=== PATIENT | male | born 1980 | race Caucasian/White ===

== ENCOUNTER 2019-11-29 15:02 | Emergency (ER) | payer BC, SELFPAY ==
[2019-11-29 15:03] VITALS: BP 121/78; PULSE 72; RESP 12; TEMP 36.8; O2SAT 100; BMI 19.6
--- NOTE | 2019-11-29 15:16 | [facility].EDGENADL ---
ED Disposition Clinical Impression: Bloody diarrhea Disposition: Home, Self-Care Condition on Discharge: Good Instructions: DI for Diarrhea and Traveler's Diarrhea -- Adult Additional Instructions: Outpatient diarrhea panel. Follow-up results with primary care provider. Additional instructions for ABDOMINAL PAIN: See your physician as soon as possible for further evaluation. Return immediately if worsening abdominal pain, vomiting, shortness of breath, fever, vomiting of blood or abdominal distention. Referrals: Maldonado Pelayo MD [Primary Care Provider] - - Critical Care Critical Care Time: No Attestation: On 11/29/19, the high probability of a clinically significant, sudden or life threatening deterioration of the following system(s) required my full and direct attention, intervention and personal management. The time I documented below is in addition to time spent performing reported procedures but includes the following listed in this critical care notation. Medical Decision Making - Medical Records Medical records reviewed: Yes: I reviewed the patient's medical records. - Brigido Inquiry Pt receiving controlled substance: No Vital Signs: 11/29/19 15:03 11/29/19 17:17 Temperature 98.2 F Temperature Source Oral Pulse Rate [Right] 72 84 Respiratory Rate 12 16 Blood Pressure [Right Arm] 121/78 111/67 Blood Pressure Mean [Right Arm] 92 81 Blood Pressure Source [Right Arm] Automatic Cuff Blood Pressure Position [Right Arm] Sitting 02 Sat by Pulse Oximetry 100 100 Oxygen Delivery Method Room Air Room Air - Lab Data Lab results reviewed: Yes: I reviewed the patient's lab results. Lab Results 11/29/19 15:20: Urine Color Yellow, Urine Appearance Clear, Urine pH 6.0, Ur Specific [place] >= 1.030, Urine Protein Negative, Urine Glucose (UA) Negative, Urine Ketones Negative, Urine Blood Trace-i, Urine Nitrate Negative, Urine Bilirubin Negative, Urine Urobilinogen 0.2, Ur Leukocyte Esterase Negative, Urine RBC Occasional, Urine WBC Occasional, Ur Squamous Epith Cells Occasional, Amorphous Sediment 1+, Urine Bacteria None, Urine Mucus 1+ 11/29/19 15:20: WBC 5.8, RBC 5.09, Hgb 15.5, Hct 43.5, MCV 85.5, MCH 30.3, MCHC 35.5 H, RDW 12.7, Plt Count 208, MPV 7.6, Neut % (Auto) 64.9, Lymph % (Auto) 22.6, [place] % (Auto) 5.0, Eos % (Auto) 7.0, Baso % (Auto) 0.6, Neut # (Auto) 3.8, Lymph # (Auto) 1.3, [place] # (Auto) 0.3, Eos # (Auto) 0.4, Baso # (Auto) 0.0 11/29/19 15:20: Sodium 140, Potassium 3.7, Chloride 97 L, Carbon Dioxide 32 H, Anion Gap 14.7, BUN 15, Creatinine 0.90, Estimated Creat Clear 103, Estimated GFR 94, Est GFR ( Amer) 114, Glucose 84, Calcium 10.0, Total Bilirubin 0.8, AST 48, ALT 40, Alkaline Phosphatase 54, Total Protein 8.4 H, Albumin 5.2 H, Globulin 3.2, Albumin/Globulin Ratio 1.6, Amylase 88 11/29/19 15:20: Lipase 102 Result diagrams: 11/29/19 15:20 11/29/19 15:20 Orders (Tests/Meds): ED MEDICATIONS Discontinued Medications Generic Name Dose Route Start Last Admin Trade Name Shashankq PRN Reason Stop Dose Admin Ioversol 75 ml 11/29/19 16:09 11/29/19 16:11 Rad-Optiray 350 100ml Vial IV 11/29/19 16:10 75 ml ONCE ONE Administration Protocol Sodium Chloride 10 ml 11/29/19 16:09 11/29/19 16:11 Rad-Saline Flush 10ml Syringe IV 11/29/19 16:10 10 ml ONCE ONE Administration ORDERS Category Date Time Status CT abdomen pelvis w con Stat Cat Scan 11/29/19 15:28 Taken Diarrhea 6-11 Panel, Cdiff PCR Stat Lab 11/29/19 15:32 Ordered Occult Blood,Stool Stat Lab 11/29/19 15:28 Ordered - CT Data CT Scan: Abdomen, Pelvis Time Received: 17:00 ([facility] fax) ED CT Reviewed: Yes: I have viewed the radiologist's interpretation Findings Narrative: No acute findings Medical Decision Narrative: No diarrhea in the emergency department. Has not provided diarrhea panel sample. The patient is nontoxic with unremarkable labs and CT. I have advised him that I wou
--- NOTE | 2019-11-29 15:28 | CT_ITS ---
Procedure: CT ABDOMEN PELVIS W CON Referring Doctor: Vineet Pino Patient Age:39Y CLINICAL INDICATION: BLOODY STOOL Abd cramping 2 days when trying have bowel movement COMPARISON: No exams were available for comparison TECHNIQUE: IV contrast: 75 cc Optiray 350 IV contrast utilized; but no oral/enteric contrast Helical axial images obtained with sagittal and coronal reformats. All CT scans at the facility use one or more dose reduction, viz: automated exposure control, ma/kV adjustment per patient size (including targeted exams where dose is matched to indication, i.e. head), or iterative reconstruction technique. FINDINGS: Lower thorax: No acute finding ABDOMEN/pelvis Liver spleen pancreas kidneys ureters unremarkable. Adrenals appear normal. Gallbladder contracted small size no gallstones. No biliary ductal dilatation. -GI tract- Stomach moderate distended with fluid and food mildly distending stomach. Duodenal loop and small bowel unremarkable no dilatation. Terminal ileum satisfactory Appendix-no good evidence of appendicitis Large bowel: Upper normal wall thickness throughout rectum and to lesser degree descending colon-may be reflection of lack of distension although may warrant further evaluation if there blood in stool Moderate solid stool right colon PELVIS: Reproductive: A normal prostate. Bladder: Small nondistended. No obvious stones or masses. Appendix: Unremarkable. No distention or periappendiceal phlegmonous change. Peritoneum: No abnormal fluid collections. No obvious inflammatory changes. No free air. But no hernia Lymph nodes: No enlarged lymph nodes apparent. Vasculature: No evidence of abdominal aortic aneurysm. No retroperitoneal hemorrhage evident. Bones: No acute fracture. No lesions. IMPRESSION: No acute findings abdomen or pelvis Generous wall thickening appearance throughout rectum and lesser throughout descending colon, more likely reflects lack distension, but if blood in stool present/or persist unexplained then endoscopywarranted Evaluation Dictated by: Jeffry Muniz MD 11/29/2019 20:02 Jeffry Muniz MD in [facility] 11/29/2019 20:02
[2019-11-29 15:34] LABS: Microscopic, Urine URINE MICROSCOPIC (MICROSCOPIC)
[2019-11-29 15:37] LABS: Appearance,Urine CLEAR (Clear); Basophils % 0.6 % (0.1-2.0); Bilirubin,Urine Negative (Negative); Blood, Urine TRACE-I (Negative); Color,Urine YELLOW (Yellow); Eosinophils # 0.4 K/mm3 (0.0-0.4); Glucose,Urine (UA) Negative (Negative); Hematocrit 43.5 % (42.0-52.0); Hemoglobin 15.5 g/dL (14.1-18.0); Ketones,Urine Negative (Negative); Leukocyte Esterase,Urine Negative (Negative); Lymphocytes # 1.3 K/mm3 (0.7-4.5); Lymphocytes % 22.6 % (10-50); Mean Corpuscular HGB Conc 35.5 g/dL (31.8-35.4); Mean Corpuscular Hemoglobin 30.3 pg (27.0-31.2); Mean Corpuscular Volume 85.5 fl (80-94); Mean Platelet Volume 7.6 fl (7.4-10.4); Monocytes # 0.3 K/mm3 (0.1-1.0); Neutrophils # 3.8 K/mm3 (1.8-7.8); Neutrophils % 64.9 % (37.0-80.0); Nitrate,Urine Negative (Negative); Platelet Count 208 K/mm3 (142-424); Protein,Urine Negative (Negative); Red Blood Count 5.09 M/mm3 (4.60-6.20); Red Cell Distribution Width 12.7 % (11.5-17.5); Specific Gravity, Urine >= 1.030 (1.005-1.030); Urobilinogen,Urine 0.2 EU/dl (0.2); White Blood Count 5.8 K/mm3 (4.8-10.8)
[2019-11-29 15:42] LABS: Alanine Aminotransferase 40 U/L (12-78); Albumin Level 5.2 g/dl (3.5-5.0); Albumin/Globulin Ratio 1.6 (1.1-1.8); Alkaline Phosphatase 54 U/L (38-126); Amylase 88 U/L (30-110); Anion Gap 14.7 mEq/L (5-15); Aspartate Amino Transferase 48 U/L (17-59); Bilirubin,Total 0.8 mg/dl (0.2-1.3); Blood Urea Nitrogen 15 mg/dl (9-20); Carbon Dioxide 32 mmol/L (22.0-30.0); Chloride 97 mmol/L (98-107); Creatinine Clearance Estimated 103 mL/min (50-200); Estimated Glomerular Filt Rate 94 ml/min (>60); GFR (African American) 114 ML/MIN (>60); Globulin 3.2 g/dL (1.3-3.2); Glucose 84 mg/dl (74-100); Potassium 3.7 mmoL/L (3.5-5.1); Sodium 140 mmol/L (136-145); Total Protein,Serum 8.4 g/dl (6.3-8.2)
[2019-11-29 15:43] LABS: Amorphous Sediment,Urine 1+ /lpf; Lipase 102 U/L (23-300); Mucus,Urine 1+ /lpf; RBC,Urine Occasional #/hpf (0-3); Squamous Epithelial Cell,Urine Occasional #/hpf (0-5); WBC,Urine Occasional #/hpf (0-3)
--- NOTE | 2019-11-29 15:52 | PC.NURSE ---
pt going to CT
[2019-11-29 17:17] VITALS: BP 111/67; PULSE 84; RESP 16; O2SAT 100
[2019-11-29 17:42] VITALS: BP 116/80; PULSE 70; RESP 16; TEMP 36.9; O2SAT 98
== END 2019-11-29 17:43 | disposition home or self-care (01) ==
PROVIDERS: Emergency Provider Emergency Medicine; PCP Family Medicine
DX: R19.7 Diarrhea, unspecified (principal)
CPT/HCPCS: 74177; 80053; 81001; 82150; 83690; 85025; 99283; Q9967

== ENCOUNTER → 2019-11-30 07:28 | Outpatient (CLI) | payer BC, SELFPAY ==
[2019-11-30 07:35] LABS: Adenovirus F 40/41, stool Not Detected (NotDetected); Astrovirus Not Detected (NotDetected); Campylobacter Not Detected (NotDetected); Clostridium Difficile A/B, PCR Not Detected (NotDetected); Cryptosporidium Not Detected (NotDetected); Cyclospora Cayetanesis Not Detected (NotDetected); Entamoeba histolytica Not Detected (NotDetected); Enteroaggregative E coli Not Detected (NotDetected); Enteropathogenic E coli Not Detected (NotDetected); Enterotoxigenic E coli Not Detected (NotDetected); Giardia lamblia Not Detected (NotDetected); Norovirus Not Detected (NotDetected); Plesimonas Shigalloides, PCR Not Detected (NotDetected); Rotavirus A Not Detected (NotDetected); Salmonella, PCR Not Detected (NotDetected); Sapovirus Not Detected (NotDetected); Shiga-like toxin E coli Not Detected (NotDetected); Shigella Enterovasive E coli Not Detected (NotDetected); Vibrio Cholerae Not Detected (NotDetected); Vibrio, PCR Not Detected (NotDetected); Yersinia Entercolitica, PCR Not Detected (NotDetected)
== END ==
PROVIDERS: Visit Provider Emergency Medicine
DX: R19.7 Diarrhea, unspecified (principal)
CPT/HCPCS: 87507

== ENCOUNTER 2020-07-02 13:05 | Emergency (ER) | payer BC, SELFPAY ==
[2020-07-02 13:25] VITALS: BP 118/64; PULSE 51; RESP 14; TEMP 36.6; O2SAT 100; BMI 20.3
[2020-07-02 13:38] LABS: Apearance,Urine Clear (Clear); Color,Urine Yellow (Yellow); PH,Urine 6.5 (5.0-8.5); Specific Gravity, Urine 1.025 (1.005-1.030)
[2020-07-02 13:39] LABS: Bilirubin,Urine Negative (Negative); Blood, Urine Negative (Negative); Glucose,Urine (UA) Negative (Negative); Ketones,Urine Negative (Negative); Protein,Urine Negative (Negative); UTC Leukocyte Esterase,Urine Negative (Negative); UTC Nitrate,Urine Negative (Negative); Urobilinogen,Urine 2 EU/dl (0.2)
[2020-07-02 13:49] VITALS: BP 127/79; PULSE 63; O2SAT 100
--- NOTE | 2020-07-02 13:49 | [facility].EDGENADL ---
ED Disposition Clinical Impression: Right varicocele Disposition: Home, Self-Care Condition on Discharge: Good Referrals: Maldonado Pelayo MD [Primary Care Provider] - 3 days Time of Disposition: 15:57 - Critical Care Critical Care Time: No Attestation: On 07/02/20, the high probability of a clinically significant, sudden or life threatening deterioration of the following system(s) required my full and direct attention, intervention and personal management. The time I documented below is in addition to time spent performing reported procedures but includes the following listed in this critical care notation. Medical Decision Making - Brigido Inquiry Pt receiving controlled substance: No Vital Signs: 07/02/20 13:25 07/02/20 13:49 07/02/20 13:51 Temperature 98 F 98.4 F Temperature Source Oral Oral Pulse Rate 63 Pulse Rate [Right] 51 L 80 Respiratory Rate 14 20 Blood Pressure 127/79 Blood Pressure [Right Arm] 118/64 127/79 Blood Pressure Mean 96 Blood Pressure Mean [Right Arm] 82 95 Blood Pressure Source [Right Arm] Automatic Cuff Automatic Cuff Blood Pressure Position [Right Arm] Sitting Sitting 02 Sat by Pulse Oximetry 100 100 97 Oxygen Delivery Method Room Air - Lab Data Lab results reviewed: Yes: I reviewed the patient's lab results. Lab Results 07/02/20 13:30: Urine Color Yellow, Urine Appearance Clear, Urine pH 6.5, Ur Specific [place] 1.025, Urine Protein Negative, Urine Glucose (UA) Negative, Urine Ketones Negative, Urine Blood Negative, Urine Nitrate Negative, Urine Bilirubin Negative, Urine Urobilinogen 2, Ur Leukocyte Esterase Negative 07/02/20 14:02: WBC 6.7, RBC 4.55 L, Hgb 14.9, Hct 38.4 L, MCV 84.3, MCH 32.7 H, MCHC 38.8 H, RDW 12.7, Plt Count 206, MPV 7.6, Neut % (Auto) 70.1, Lymph % (Auto) 22.8, [place] % (Auto) 4.2, Eos % (Auto) 2.5, Baso % (Auto) 0.4, Neut # (Auto) 4.7, Lymph # (Auto) 1.5, [place] # (Auto) 0.3, Eos # (Auto) 0.2, Baso # (Auto) 0.0 07/02/20 14:02: Sodium 141, Potassium 4.1, Chloride 103, Carbon Dioxide 28, Anion Gap 14.1, BUN 10, Creatinine 0.90, Estimated Creat Clear 106, Estimated GFR 94, Est GFR ( Amer) 114, Glucose 96, Calcium 9.9, Total Bilirubin 0.7, AST 42, ALT 23, Alkaline Phosphatase 52, Total Protein 8.1, Albumin 5.2 H, Globulin 2.9, Albumin/Globulin Ratio 1.8 Result diagrams: 07/02/20 14:02 07/02/20 14:02 Orders (Tests/Meds): ED MEDICATIONS Discontinued Medications Generic Name Dose Route Start Last Admin Trade Name Freq PRN Reason Stop Dose Admin Iopamidol 75 ml 07/02/20 14:50 07/02/20 14:51 Iopamidol-370 (76%);100ml Bottle IV 07/02/20 14:51 75 ml ONCE ONE Administration Sodium Chloride 10 ml 07/02/20 14:50 07/02/20 14:51 Sodium Chloride 0.9% 10ml Syr (Rad Only) IV 07/02/20 14:51 10 ml ONCE ONE Administration - CT Data CT Scan: Abdomen, Pelvis Time Received: 15:[address] Reviewed: Yes: I have reviewed the patient's CT results Preliminary Findings: Normal/NAD - US Data US Images: Other (Scrotal) ED US Reviewed: Yes: I have reviewed the patient's US results Findings Narrative: Right-sided varicocele Medical Decision Narrative: 39yo M evaluated for left-sided scrotal pain. Differential diagnosis includes but not limited to: Torsion, varicocele, hernia, infection. Patient is in no acute distress on initial evaluation. Physical exam is unremarkable except for mild tenderness to palpate and noted to have bag of worms sensation on palpation of left-sided cord. Patient is sent for ultrasound and CT of the abdomen pelvis. CT is unremarkable except for possible enteritis. Patient has no gastric complaints. Ultrasound consistent with varicocele. These results were shared with patient at bedside. Encouraged to continue to wear supportive underwear and follow-up with PCP versus urology. General Adult HPI - General Stated complaint: Pain in Groin Area Time Seen by Provider: 07/02/20 13:49 Mode of Arri
[2020-07-02 13:51] VITALS: BP 127/79; PULSE 80; RESP 20; TEMP 36.9; O2SAT 97; BMI 20.3
--- NOTE | 2020-07-02 14:18 | CT_ITS ---
PROCEDURE: CT ABDOMEN PELVIS W CON CLINICAL INDICATION: L abd/test pain COMPARISON: CT CT ABDOMEN PELVIS W CON from 11/29/2019 US US TESTICULAR from 07/02/2020 TECHNIQUE: IV Contrast: 75ML OPTIRAY 350 Oral Contrast none given Axial images obtained with sagittal and coronal reformats. All CT scans at the facility use one or more dose reduction, viz: automated exposure control, ma/kV adjustment per patient size (including targeted exams where dose is matched to indication, i.e. head), or iterative reconstruction technique. FINDINGS: Lower thorax: No acute finding ABDOMEN: Liver: No masses or biliary dilatation. Gallbladder: Nondistended. No radio opaque stones. Pancreas: No masses or peripancreatic fluid collections. Spleen: unremarkable Adrenals: unremarkable Kidneys/ureters: The kidneys are normal in size and show symmetrical function both appearing normal. ABDOMEN & PELVIS: Stomach bowel: Nondistended. No obvious mass or thickening. There are mildly dilated fluid-filled loops of proximal small bowel possibly reflecting some degree of enteritis. The distal small bowel is normal in caliber, there is no transition zone. The appendix is normal and partially air-filled. There is a moderately large amount stool in the ascending colon and hepatic flexure with moderate gas and stool in the transverse and descending colon. There is no diverticulosis or diverticulitis Peritoneum: No abnormal fluid collections. No obvious inflammatory changes. No free air. Lymph nodes: No enlarged lymph nodes apparent. Vasculature: No evidence of abdominal aortic aneurysm. No retroperitoneal hemorrhage evident. Bones: No acute fracture PELVIS: Reproductive: There may be right-sided hydrocele Bladder: Nondistended. No obvious stones or masses. Appendix: Normal IMPRESSION: Mildly dilated proximal small bowel loops raising possibility of mild enteritis but there is appears to be no evidence of obstruction Dictated by: Dr. Luigi Stewart MD 07/02/2020 15:32 Dr. Luigi Stewart MD in [facility] 07/02/2020 15:32
--- NOTE | 2020-07-02 14:18 | US_ITS ---
PROCEDURE: US TESTICULAR CLINICAL INDICATION: L test pain COMPARISON: No exams were available for comparison FINDINGS: Both testicles appear grossly normal. There is a small varicocele right-side. There is a large varicocele side definitely accentuated with Valsalva maneuver. There is good vascular flow to both testicles. IMPRESSION: Moderate size varicocele left side, grossly normal appearing testicles bilaterally. Dictated by: Dr. Luigi Stewart MD 07/02/2020 15:35 Dr. Luigi Stewart MD in [facility] 07/02/2020 15:35
[2020-07-02 14:19] LABS: Chloride 103 mmol/L (98-107); Potassium 4.1 mmoL/L (3.5-5.1); Sodium 141 mmol/L (136-145)
[2020-07-02 14:22] LABS: Alanine Aminotransferase 23 U/L (12-78); Albumin Level 5.2 g/dl (3.5-5.0); Albumin/Globulin Ratio 1.8 (1.1-1.8); Alkaline Phosphatase 52 U/L (38-126); Anion Gap 14.1 mEq/L (5-15); Aspartate Amino Transferase 42 U/L (17-59); Basophils % 0.4 % (0.1-2.0); Bilirubin,Total 0.7 mg/dl (0.2-1.3); Blood Urea Nitrogen 10 mg/dl (9-20); Calcium 9.9 mg/dl (8.4-10.2); Carbon Dioxide 28 mmol/L (22.0-30.0); Creatinine Clearance Estimated 106 mL/min (50-200); Eosinophils # 0.2 K/mm3 (0.0-0.4); Eosinophils % 2.5 % (0.1-12.0); Estimated Glomerular Filt Rate 94 ml/min (>60); GFR (African American) 114 ML/MIN (>60); Globulin 2.9 g/dL (1.3-3.2); Glucose 96 mg/dl (74-100); Hematocrit 38.4 % (42.0-52.0); Hemoglobin 14.9 g/dL (14.1-18.0); Lymphocytes # 1.5 K/mm3 (0.7-4.5); Lymphocytes % 22.8 % (10-50); Mean Corpuscular HGB Conc 38.8 g/dL (31.8-35.4); Mean Corpuscular Hemoglobin 32.7 pg (27.0-31.2); Mean Corpuscular Volume 84.3 fl (80-94); Mean Platelet Volume 7.6 fl (7.4-10.4); Monocytes # 0.3 K/mm3 (0.1-1.0); Monocytes % 4.2 % (1.7-9.3); Neutrophils # 4.7 K/mm3 (1.8-7.8); Neutrophils % 70.1 % (37.0-80.0); Platelet Count 206 K/mm3 (142-424); Red Blood Count 4.55 M/mm3 (4.60-6.20); Red Cell Distribution Width 12.7 % (11.5-17.5); Total Protein,Serum 8.1 g/dl (6.3-8.2); White Blood Count 6.7 K/mm3 (4.8-10.8)
--- NOTE | 2020-07-02 14:41 | PC.NURSE ---
paged US for scrotal US
--- NOTE | 2020-07-02 14:52 | PC.NURSE ---
Patient gone to rad.
--- NOTE | 2020-07-02 15:09 | PC.NURSE ---
pt returning from rad.
[2020-07-02 16:25] VITALS: BP 118/75; PULSE 59; RESP 15; TEMP 36.8; O2SAT 99
[2020-07-02 16:52] LABS: Microscopic, Urine URINE MICROSCOPIC (MICROSCOPIC)
[2020-07-02 16:55] LABS: Appearance,Urine CLEAR (Clear); Bilirubin,Urine Negative (Negative); Blood, Urine Negative (Negative); Color,Urine YELLOW (Yellow); Glucose,Urine (UA) Negative (Negative); Ketones,Urine Negative (Negative); Leukocyte Esterase,Urine Negative (Negative); Nitrate,Urine Negative (Negative); Protein,Urine Negative (Negative); Urobilinogen,Urine 0.2 EU/dl (0.2)
== END 2020-07-02 16:26 | disposition home or self-care (01) ==
LOC: UTC 13:47 → ER 13:47
PROVIDERS: Family Medicine; Emergency Provider Nurse Practitioner Family; PCP Family Medicine
DX: I86.1 Scrotal varices (principal)
CPT/HCPCS: 74177; 76870; 80053; 81001; 81003; 85025; 99283; Q9967